=== PATIENT | female | born 1985 | race Caucasian/White ===

== ENCOUNTER 2017-05-31 02:18 | Emergency (ER) | payer OTHER ==
[~2017-05-31] VITALS: Ht 160 cm; Wt 171.0 kg
[~2017-05-31 02:18] MED LIST: BUSP5TAB2 PO; CARI350T PO; DULO30CA47 PO; DULO60CA6 PO; FIORICET PO; LANS30CA47 PO; LORA-186 PO; LORA10CA PO; NORCO; ONDA4TAB8 PO; ONDA4TAB95 PO
[2017-05-31 02:22] VITALS: Ht 160 cm; Wt 171.0 kg
[2017-05-31] MEDS ORDERED: ONDANSETRON (ODT) 4 MG TAB ODT STA (02:47)
[2017-05-31] MEDS ORDERED: HYDROCODONE/APAP (5/325) TAB PO ONE (03:00)
[2017-05-31 03:20] LABS: ABNORMAL IP MESSAGE 1; BASOPHIL # 0.1 10^3/ul (0.0-0.1); BASOPHILS % 0.7 % (0.0-2.0); EOSINOPHILS # 0.4 10^3/ul (0.0-0.5); EOSINOPHILS % 2.6 % (0.0-7.0); HEMATOCRIT 40.3 % (37.0-47.0); HEMOGLOBIN 12.9 g/dl (12.0-16.0); LYMPHOCYTES % 39.5 % (15.0-51.0); MEAN CORPUSCULAR HEMOGLOBIN 28.5 pg (29.0-33.0); MEAN CORPUSCULAR VOLUME 89.2 fl (82.0-101.0); MEAN PLATELET VOLUME 10.6 fl (7.4-10.4); MONOCYTES % 6.4 % (0.0-11.0); NEUTROPHIL # 7.5 10^3/ul (1.6-7.5); PLATELET COUNT 249 10^3/UL (140-415); RED BLOOD COUNT 4.52 10^6/ul (4.20-5.40); RED CELL DISTRIBUTION WIDTH 13.5 % (11.5-14.5); WHITE BLOOD COUNT 15.1 10^3/ul (4.8-10.8)
[2017-05-31 03:21] LABS: POSITIVE DIFF @See below
[2017-05-31 03:33] LABS: ADD UMIC YES; UR ASCORBIC ACID NEGATIVE (NEGATIVE); UR BILIRUBIN (Dip) NEGATIVE (NEGATIVE); UR BLOOD (Dip) 3+ mg/dL (NEGATIVE); UR CLARITY SLIGHTLY CLOUDY (CLEAR); UR COLOR YELLOW (YELLOW); UR GLUCOSE (Dip) NEGATIVE (NEGATIVE); UR KETONES (Dip) NEGATIVE (NEGATIVE); UR LEUKOCYTE ESTERASE (Dip) TRACE Leu/ul (NEGATIVE); UR MUCUS FEW /HPF (NONE SEEN); UR NITRITE (Dip) NEGATIVE (NEGATIVE); UR RBC 154 /HPF (0-5); UR SPECIFIC GRAVITY (Dip) 1.032 (1.003-1.030); UR SQUAMOUS EPITHELIAL CELL FEW /HPF (FEW); UR TOTAL PROTEIN (Dip) 1+ mg/dl (NEGATIVE); UR UROBILINOGEN (Dip) 1+ mg/dL (NEGATIVE)
[2017-05-31 03:43] LABS: ALBUMIN 3.9 g/dl (3.3-4.9); ALBUMIN/GLOBULIN RATIO 1.18; CALCIUM 9.1 mg/dl (8.4-10.2); CREATININE 0.77 mg/dl (0.44-1.00); POTASSIUM 4.1 mmol/L (3.5-5.1); TOTAL PROTEIN 7.2 g/dl (6.1-8.1)
--- NOTE | 2017-05-31 05:01 | RADRPT ---
PROCEDURE: ULTRASOUND PELVIS CLINICAL INDICATION: 31-year-old female with vaginal bleeding. TECHNIQUE: Multiple sonographic images of the pelvis were obtained utilizing a transabdominal and endovaginal technique. The images were reviewed on a PACS workstation. COMPARISON: None. FINDINGS: The uterus is visualized and measures 6.7 x 3.5 x 3.6 cm. The endometrial echo complex is within nor mal limits and measures 12.6 mm. There is minimal free fluid within the cul-de-sac. The right ovary has a normal echotexture and measures 3.6 x 1.7 x 2.0 cm. There is flow within the right ovary. The re is a right ovarian cyst measuring 2.1 x 1.3 x 1.2 cm. The left ovary was not visualized. No adnex al masses are noted. IMPRESSION: 1. Right ovarian cyst. 2. Minimal pelvic free fluid. 3. The left ovary was not visualized. .Ranjeet Crain MD, Date Time Electronically viewed and signed by .Ranjeet Crain MD, on 05/31/2017 05:01 .Lauren
[2017-05-31] MEDS ORDERED: ACET325T33 PO (05:12)
[2017-05-31] MEDS ORDERED: CEPH-443 PO (05:12)
--- NOTE | 2017-05-31 05:29 | ERD ---
ER Documentation Chief Complaint Date/Time DATE: 05/31/17 TIME: 05:25 Chief Complaint vag bleeding x 2 weeks w/ pelvic pain, back pain HPI Patient is a 31-year-old female with no significant medical history presenting to the emergency department with complaints of vaginal bleeding intermittently for the past 11 days. She also reports pelvic pain and suprapubic cramping for the past 3 days. Symptoms are worsening. Symptoms are intermittent. She denies fevers, chills, or other symptoms currently. Last menstrual cycle was 04-02-2017. ROS All systems reviewed and are negative except as per history of present illness. Medications Home Meds Active Scripts Acetaminophen* (Tylenol*) 325 Mg Tablet, 2 TAB PO Q6 Y for PAIN AND OR ELEVATED TEMP, #20 TAB Prov:LOUIS BELLE PA-C 05/31/17 Cephalexin* (Keflex*) 500 Mg Capsule, 500 MG PO QID for 5 Days, #15 CAP Prov:LOUIS BELLE PA-C 05/31/17 Reported Medications [[place]] No Conflict Check 04/16/16 Loratadine* (Claritin*) 10 Mg Capsule, 10 MG PO DAILY, CAP 09/16/15 Duloxetine Hcl* (Duloxetine Hcl*) 30 Mg Capsule.dr, 30 MG PO DAILY, #30 CAP 09/16/15 Ondansetron Hcl* (Ondansetron Hcl*) 4 Mg Tablet, 4 MG PO Q8, TAB 09/16/15 Acetamin/Butalbital/Caffeine* (Fioricet*) 1 Tab Tab, 1 TAB PO Q4H Y for PAIN LEVEL 1-5, TAB 09/16/15 Buspirone Hcl* (Buspirone Hcl*) 5 Mg Tab, 5 MG PO TID, TAB 11/19/14 Lansoprazole* (Prevacid*) 30 Mg Capsule.dr, 30 MG PO DAILY, CAP 11/19/14 Ondansetron Hcl* (Zofran*) 4 Mg Tablet, 4 MG PO Q6H Y for NAUSEA AND OR VOMITING , TAB 11/19/14 Loratadine* (Claritin*) 10 Mg Tablet, 10 MG PO DAILY, TAB 11/19/14 Duloxetine Hcl* (Cymbalta*) 60 Mg Capsule.dr, 60 MG PO DAILY, CAP 11/19/14 Carisoprodol* (Soma*) 350 Mg Tablet, 350 MG PO Q8H Y for MUSCLE SPASMS, TAB 11/19/14 Allergies Allergies: Coded Allergies: aspirin (Verified Allergy, Unknown, 11/18/14) ibuprofen (Verified Allergy, Unknown, STOMACH PROBLEMS, 11/18/14) naproxen (Verified Allergy, Unknown, STOMACH PAIN, 11/18/14) aripiprazole (Unverified Adverse Reaction, Unknown, SHAKING, 11/19/14) PMhx/Soc History of Surgery: Yes (ERCP, CHOLECYSTECTOMY) Anesthesia Reaction: No Hx Neurological Disorder: No Hx Respiratory Disorders: Yes (ASTHMA) Hx Cardiac Disorders: No Hx Psychiatric Problems: Yes (ADD, ANXIETY, DEPRESSION) Hx Miscellaneous Medical Probl: No Hx Alcohol Use: No Hx Substance Use: No Hx Tobacco Use: Yes Smoking Status: Current every day smoker Physical Exam Vitals Vital Signs Date Time Temp Pulse Resp B/P Pulse Ox O2 Delivery O2 Flow Rate FiO2 05/31/17 02:22 98.3 78 20 144/86 98 Physical Exam Const: Morbidly obese appearing, nontoxic female in no acute distress. Head: Atraumatic Eyes: Normal Conjunctiva ENT: Normal External Ears, Nose and Mouth. Neck: Full range of motion..~ No meningismus. Resp: Clear to auscultation bilaterally Cardio: Regular rate and rhythm, no murmurs Abd: Obese, soft, non tender, non distended. Normal bowel sounds. Mild suprapubic tenderness to palpation bilaterally. Skin: No petechiae or rashes Back: No midline or flank tenderness Ext: No cyanosis, or edema Neur: Awake and alert Psych: Normal Mood and Affect Result Diagram: 05/31/17 0300 05/31/17 0300 Results 24 hrs Laboratory Tests Test 05/31/17 03:00 White Blood Count 15.110^3/ul Red Blood Count 4.5210^6/ul Hemoglobin 12.9g/dl Hematocrit 40.3% Mean Corpuscular Volume 89.2fl Mean Corpuscular Hemoglobin 28.5pg Mean Corpuscular Hemoglobin Concent 32.0g/dl Red Cell Distribution Width 13.5% Platelet Count 00356^3/UL Mean Platelet Volume 10.6fl Neutrophils % 50.0% Lymphocytes % 39.5% Monocytes % 6.4% Eosinophils % 2.6% Basophils % 0.7% Nucleated Red Blood Cells % 0.0/100WBC Neutrophils # 7.510^3/ul Lymphocytes # 6.010^3/ul Monocytes # 1.010^3/ul Eosinophils # 0.410^3/ul Basophils # 0.110^3/ul Nucleated Red Blood Cells # 0.010^3/ul Urine Color YELLOW Urine Clarity SLIGHTLY CLOUDY Urine pH 5.0 Urine Specific [place] 1.032 Urine Ketones NEGATIVEmg/dL Urine Nitrite NEGATIVEmg/dL Urine Bilirubin NEGATIVEmg/dL Urine Urobilinogen 1+mg/dL Urine Leukocyte Esterase TRACELeu/ul Urine Microscopic RBC 154/HPF Urine Microscopic WBC 5/HPF Urine Squamous Epithelial Cells FEW/HPF Urine Mucus FEW/HPF Urine Hemoglobin 3+mg/dL Urine Glucose NEGATIVEmg/dL Urine Total Protein 1+mg/dl Sodium Level 141mmol/L Potassium Level 4.1mmol/L Chloride Level 112mmol/L Carbon Dioxide Level 19mmol/L Anion Gap 14 Blood Urea Nitrogen 12mg/dl Creatinine 0.77mg/dl Glucose Level 109mg/dl Calcium Level 9.1mg/dl Total Bilirubin 0.0mg/dl Direct Bilirubin 0.00mg/dl Indirect Bilirubin 0.0mg/dl Aspartate Amino Transf (AST/SGOT) 32IU/L Alanine Aminotransferase (ALT/SGPT) 66IU/L Alkaline Phosphatase 90IU/L Total Protein 7.2g/dl Albumin 3.9g/dl Globulin 3.30g/dl Albumin/Globulin Ratio 1.18 Current Medications Medications (Trade) Dose Ordered Sig/Marcin Route PRN Reason Start Time Stop Time Status Last Admin Dose Admin Acetaminophen/ Hydrocodone Bitart ([place] (5/325)) 1 tab ONCE ONCE PO 05/31/17 03:00 05/31/17 03:01 DC 05/31/17 03:00 Ondansetron HCl (Zofran Odt) 4 mg ONCE STAT ODT 05/31/17 02:47 05/31/17 02:49 DC 05/31/17 03:00 Procedures/MDM 31-year-old female presenting to the emergency department with complaints of pelvic pain and vaginal bleeding.The patient was given p.o. [place] and p.o. Zofran in the department and she is feeling improved on reevaluation. The patient did have slight leukocytosis at 15.1 which may be reactive in nature or may be secondary to urinary tract infection. Chemistry was negative for significant acute abnormalities. Urinalysis did show leukocytes concerning for an uncomplicated urinary tract infection. Pelvic ultrasound did show a right ovarian cyst in the left ovary was not visualized. There is minimal pelvic free fluid. These findings are nonspecific. Her pain may be secondary to urinary tract infection or may be secondary to the ovarian cyst. No specific cause for the pain was identified during workup, however life-threatening pathology was essentially ruled out. The patient is stable for discharge with a prescription for Tylenol and Keflex. She agreed with the discharge plan a diagnosis. She was advised to have close follow-up with her [employer] physician. Strict ear return precautions were discussed. PROCEDURE: ULTRASOUND PELVIS CLINICAL INDICATION: 31-year-old female with vaginal bleeding. TECHNIQUE: Multiple sonographic images of the pelvis were obtained utilizing a transabdominal and endovaginal technique. The images were reviewed on a PACS workstation. COMPARISON: None. FINDINGS: The uterus is visualized and measures 6.7 x 3.5 x 3.6 cm. The endometrial echo complex is within normal limits and measures 12.6 mm. There is minimal free fluid within the cul-de-sac. The right ovary has a normal echotexture and measures 3.6 x 1.7 x 2.0 cm. There is flow within the right ovary. There is a right ovarian cyst measuring 2.1 x 1.3 x 1.2 cm. The left ovary was not visualized. No adnexal masses are noted. IMPRESSION: 1. Right ovarian cyst. 2. Minimal pelvic free fluid. 3. The left ovary was not visualized. .Ranjeet Crain MD, Date Time Electronically viewed and signed by .Ranjeet Crain MD, MD on 05/31/2017 05:01 Departure Diagnosis: Primary Impression: Urinary tract infection Additional Impression: Right ovarian cyst Condition: Fair Patient Instructions: What Are Ovarian Cysts?, Understanding Urinary Tract Infections (UTIs) Additional Instructions: Follow up with your PCP within the next 1-3 days for a repeat evaluation. If you require a referral to a specialist, your Primary Care Provider may be able to provide this for you. In most patient cases, a referral is not required. If you have further questions regarding this matter, please ask your Primary Care Provider. Return the the emergency department immediately if symptoms worsen or change. If you have any questions regarding medications, ask your pharmacist or us before you leave. If any adverse reactions, occur while taking your medications, discontinue the treatment and return to the emergency department immediately. If any new or worsening symptoms, uncontrolled fevers, or other unexplained symptoms occur, return to the emergency department immediately. Take your medications as directed, and complete the entire course of treatment. LOUIS BELLE PA-C May 31, 2017 05:29
== END 2017-05-31 05:20 | disposition home or self-care (01) ==
LOC: FTE 02:18
DX: N39.0 Urinary tract infection, site not specified (principal); N83.201 Unspecified ovarian cyst, right side; R10.2 Pelvic and perineal pain; J45.909 Unspecified asthma, uncomplicated; F17.210 Nicotine dependence, cigarettes, uncomplicated
CPT/HCPCS: 76830; 76856; 80053; 81001; 85025; Z7502; Z7610